=== PATIENT | female | born 1960 | race American Indian/Alaskan Native ===

== ENCOUNTER 2016-11-12 07:31 | Outpatient (CLI) | payer OTHER ==
--- NOTE | 2016-11-12 10:17 | Cat Scan Report ---
CT NECK WITHOUT CONTRAST: INDICATION: Hyperplastic left submaxillary salivary gland. COMPARISON: None similar at this institution. FINDINGS: Axial, sagittal and coronal CT reconstructions through the neck performed without IV contrast, as ordered. An extrinsic marker placed over palpable left neck abnormality demonstrates an underlying submandibular gland, minimally more hyperdense than the right. It measures approximately 2.6 x 2.1 cm, axial image 99, series 2 and approximately 2.8 cm craniocaudal. It also appears somewhat more prominent/bulbous inferiorly than its superior aspect, though the right submandibular gland demonstrates a somewhat opposite morphology, more prominent superiorly with its greatest dimensions approximately 2.4 x 1.8 cm, axial image 85, series 2 with approximately 2.8 cm craniocaudal extent. Numerous enlarged neck lymph nodes also identified, some as follows: 1. Largest sublingual lymph node on the right is approximately 0.9 cm, axial series 2, image 108. 2. Multiple bilateral level II lymph nodes noted, the largest on the left approximately 1.9 x 1 cm, axial series 2, image 86 and approximately 2.2 cm craniocaudal. 3. Bilateral posterior triangle lymph nodes also noted, left slightly more numerous and prominent than the right and measuring up to approximately 1.1 x 0.8 cm bilaterally as on axial image 116 on the left and image 101 on the right, series 2. Symmetric, grossly unremarkable parotid glands. Pharynx, hypopharynx and the larynx appear within normal limits. Approximately 5 mm right thyroid lobe hypodensity on the right anteriorly. Radiopaque dental materials create streak artifact, limiting exam. Mild bilateral ethmoid and frontal sinus mucosal thickening. Minimal maxillary sinus mucosal thickening inferiorly, left more than right. Clear sphenoid sinuses and mastoid air cells bilaterally. Minimal nasal septal deviation. Patent ostiomeatal complexes bilaterally. Unremarkable eye globes. Normal intracranial appearance. C5-C6 and C6-C7 disc narrowing with spurring noted with mild reversal of usual cervical lordosis as well. Clear imaged lung apices. CONCLUSION: 1. Asymmetrically prominent/hyperplastic left submandibular gland, corresponding to the palpable abnormality, as detailed above. 2. Numerous multistation nonspecific bilateral cervical prominent/enlarged lymph nodes also identified on this unenhanced exam, left slightly more prominent and numerous than the right. 3. Few other incidental findings, including mild sinusitis, as described. I phoned the above results to Dr. Calderon, 9:00 AM, 11/12/2016. Thank you for the opportunity to participate in this patient's care.
== END 2016-11-12 07:32 | disposition home or self-care (01) ==
LOC: CT 07:31
PROVIDERS: ATTEND Otolaryngology
DX: I10 Essential (primary) hypertension (principal); A60.00 Herpesviral infection of urogenital system, unspecified; J32.9 Chronic sinusitis, unspecified; R59.9 Enlarged lymph nodes, unspecified; J34.2 Deviated nasal septum
CPT/HCPCS: 70490